=== PATIENT | female | born 1935 | race Two or more races ===

== ENCOUNTER 2019-06-14 19:16 | Emergency (ER) | payer OTHER ==
[~2019-06-14] VITALS: Ht 152.4 cm; Wt 46.4 kg
[2019-06-14] MEDS ORDERED: MIRT-92 PO (20:34)
[2019-06-14] MEDS ORDERED: CALC-1085 PO (20:34)
[2019-06-14] MEDS ORDERED: QUET25TA PO (20:34)
[2019-06-14] MEDS ORDERED: ASPI-556 PO (20:34)
[2019-06-14] MEDS ORDERED: DONE5TAB5 PO (20:34)
[2019-06-14] MEDS ORDERED: BUSP5TAB20 PO (20:34)
[2019-06-14] MEDS ORDERED: SENN8.6T90 PO (20:34)
[2019-06-14] MEDS ORDERED: MEMA10TA11 PO (20:34)
[2019-06-14 22:20] VITALS: BP 143/73
== END 2019-06-14 22:55 | disposition home or self-care (01) ==
LOC: EMS 19:17
DX: F32.9 Major depressive disorder, single episode, unspecified (principal); J44.9 Chronic obstructive pulmonary disease, unspecified; F41.9 Anxiety disorder, unspecified; E78.00 Pure hypercholesterolemia, unspecified; I10 Essential (primary) hypertension; Z79.82 Long term (current) use of aspirin